=== PATIENT | female | born 2005 | race Hispanic/Latino ===

== ENCOUNTER 2024-04-02 17:53 | Emergency (ER) | payer OTHER ==
[2024-04-02] MEDS ORDERED: Ondansetron PF 4 MG/2 ML Vial ONE (19:06)
[2024-04-02] MEDS ORDERED: Morphine 4 MG/ML VIAL ONE (19:06)
== END 2024-04-02 20:40 | disposition home or self-care (01) ==
LOC: ERS 17:53
DX: S00.83XA Contusion of other part of head, initial encounter (principal); S50.12XA Contusion of left forearm, initial encounter; V43.52XA Car driver injured in collision with other type car in traffic accident, initial encounter; W22.11XA Striking against or struck by driver side automobile airbag, initial encounter
CPT/HCPCS: 70450; 70486; 96374; 96375; J2270; J2405